=== PATIENT | female | born 1990 ===

== ENCOUNTER → 2021-05-27 | Emergency (ER) | payer OTHER ==
[~2021-05-27] VITALS: Ht 172.7 cm; Wt 77.1 kg
[~2021-05-27] MED LIST: PRENA1 CHEW TA1.4 MG
== END | disposition home or self-care (01) ==
LOC: ER 12:38
DX: O99.412 Diseases of the circulatory system complicating pregnancy, second trimester (principal); I47.1 Supraventricular tachycardia; Z3A.20 20 weeks gestation of pregnancy; O26.842 Uterine size-date discrepancy, second trimester; O26.892 Other specified pregnancy related conditions, second trimester; O26.852 Spotting complicating pregnancy, second trimester; Z03.818 Encounter for observation for suspected exposure to other biological agents ruled out